=== PATIENT | female | born 1990 | race Caucasian/White ===

== ENCOUNTER → 2019-09-28 20:18 | Outpatient (CLI) | payer OTHER, SELFPAY ==
--- NOTE | 2019-09-28 | DI.MRI.S_ITS ---
PROCEDURE: MR HEAD/BRAIN WO CON INDICATIONS: Postconcussional syndrome TECHNIQUE: Noncontrast axial T1 spin echo, axial T2 fast spin echo, sagittal and axial FLAIR, coronal T2 fast spin echo, axial gradient echo, axial diffusion and ADC through the brain. COMPARISON: None. FINDINGS: Image quality: Excellent. CSF Spaces: Basal cisterns are patent. No extra-axial fluid collections. Ventricles are normal in size and shape. Brain: No intracranial masses or hemorrhage. Kelley/white matter interface is normal. Brainstem appears normal. Diffusion-weighted images demonstrate no acute ischemic insult. No chronic ischemic insults. Normal intravascular flow voids are present. Skull and face: Calvarium has normal marrow signal. Orbits appear normal. Sinuses: Sinuses and mastoids are clear. IMPRESSION: Normal for age, source of current symptoms is not seen. No intracranial hemorrhage found. Dictated by: Bradford Jasmine M.D. on 09/29/2019 at 8:21 Approved by: Bradford Jasmine M.D. on 09/29/2019 at 8:21
== END ==
PROVIDERS: Referring Provider Physician Assistant; Visit Provider Physician Assistant
DX: F07.81 Postconcussional syndrome (principal)
CPT/HCPCS: 70551

== ENCOUNTER 2020-04-23 14:43 | Emergency (ER) | payer OTHER, SELFPAY ==
[2020-04-23 14:57] VITALS: BP 146/74; PULSE 93; RESP 19; TEMP 36.9; O2SAT 98; BMI 33.1
[2020-04-23 15:28] LABS: Add Manual Diff / Slide Review NO; Basophils Absolute Auto 0 /uL (0-100); Basophils Percent Auto 0.3 % (0-2); Eosinophils Absolute Auto 0 /uL (0-450); Hematocrit 49.2 % (36-46); Hemoglobin 16.3 g/dL (12.0-16.0); Lymphocytes Absolute Auto 700 /uL (1100-4500); Mean Corpuscular HGB Conc 33.2 % (30-36); Mean Corpuscular Hemoglobin 28.4 PG (26-34); Mean Corpuscular Volume 85.7 fL (80-100); Monocytes Absolute Auto 300 /uL (0-900); Neutrophils Absolute Auto 8000 /uL (1500-7000); Neutrophils Percent Auto 88.7 % (50-75); Platelet Count 320 X10^3/uL (150-400); Red Blood Cell Count 5.74 X10^6/uL (4.0-5.2); Red Cell Distribution Width 13.1 % (11.6-14.8)
[2020-04-23] MEDS: SODIUM CHLORIDE 0.9% 1,000 ML 1000 ML IV (15:33)
[2020-04-23] MEDS: diphenhydrAMINE 50 MG/ML VIAL 25 MG IV (15:33)
[2020-04-23] MEDS: METOCLOPRAMIDE 10 MG/2 ML INJ IV (15:34)
[2020-04-23 15:35] LABS: Alanine Aminotransferase 41 IU/L (<35); Albumin 4.3 g/dL (3.5-5.0); Albumin Globulin Ratio 1.4 (1.0-2.8); Alkaline Phosphatase 76 U/L (38-126); Aspartate Aminotransferase 44 IU/L (14-36); BUN Creatinine Ratio 6.2 (6-22); Bilirubin Total 0.9 mg/dL (0.2-1.3); Blood Urea Nitrogen 4 mg/dL (7-17); Calcium 9.5 mg/dL (8.4-10.2); Carbon Dioxide 25 mmol/L (22-32); Chloride 104 mmol/L (98-107); Estimated Glomerular Filt Rate > 60.0 mL/min (>60); Glucose 90 mg/dL (70-100); HEMOLYSIS < 15 (0-50); Magnesium 2.1 mg/dL (1.6-2.3); Potassium 4.3 mmol/L (3.4-5.1); Sodium 140 mmol/L (137-145); Total Protein 7.3 g/dL (6.3-8.2)
--- NOTE | 2020-04-23 15:55 | ED.NAVMDI ---
HPI - Nausea/Vomiting/Diarrhea <YAHIR Durpee - Last Filed: 04/23/20 16:52> General Chief complaint: Nausea/Vomiting/Diarrhea Stated complaint: DEHYDRATION VOMITING Time Seen by Provider: 04/23/20 14:57 Source: patient Mode of arrival: Ambulatory Limitations: no limitations History of Present Illness HPI Narrative: This is a 29-year-old female, former smoker, who presents to ED with a friend with chief complain of feeling dehydrated with multiple episodes of nausea and vomiting. Patient reports she has not been tolerated even liquid/water. Reports associated symptoms as dry mouth, headache, spasm in her toes and fingers. Patient has been having nausea and vomiting since 02/11/20 when her committed suicide. Patient denies fever, pain but has upset stomach from heart burn. Patient also has soft stools but not diarrhea. Patient states this is 2nd visit to emergency room for rehydration and she was seen at ER in [place]. She denies urinary symptoms. She is currently seeing therapist and thinks her symptoms are psychosomatic from PTSD and anxiety. Patient reports Zofran has not been too effective treating nausea in the past. LMP 02/22/20. Related Data Home Medications Medication Instructions Recorded Confirmed alprazolam [Xanax] 1 mg PO TID PRN 04/23/20 04/23/20 ibuprofen 600 mg PO Q8HP PRN 04/23/20 04/23/20 lamotrigine 25 mg PO DAILY 04/23/20 04/23/20 Previous Rx's Medication Instructions Recorded metoclopramide HCl [Reglan] 10 mg PO Q6H PRN #10 tab 04/23/20 Allergies Allergy/AdvReac Type Severity Reaction Status Date / Time No Known Drug Allergies Allergy Verified 04/23/20 15:23 Review of Systems <Gabriele BenítezYAHIR Bauer - Last Filed: 04/23/20 16:52> Review of Systems Narrative: General: Denies fever, chills, fatigue, malaise, sweats. HEENT: Denies sinus pain, ear pain, sore throat, difficulty swallowing, dizziness. Respiratory: Denies dyspnea, cough, wheezing, hemoptysis, sputum. Cardiovascular: Denies chest pain, palpitations, orthopnea, edema. Gastrointestinal: See HPI : Denies dysuria, frequency, incontinence, hematuria, urinary retention. Musculoskeletal: Denies weakness, joint pain or bony pain. Skin: Denies rash, skin lesions, or other. Neurologic: Denies weakness, headache, numbness, change in speech, confusion, seizures, incoordination. Psychiatric: See HPI 12-point review of systems is negative except for those stated above. Patient History <YAHIR Dupree - Last Filed: 04/23/20 16:52> Medical History (Updated 04/23/20 @ 17:15 by Sintia Marx RN) Anxiety (Acute) PTSD (post-traumatic stress disorder) (Acute) Social History Smoking Status: Former smoker Smoking Status: Former smoker alcohol intake frequency: holidays/special occasions only Substance Use Type: marijuana Exam <Gabriele VU PaulsonP - Last Filed: 04/23/20 16:52> Narrative Exam Narrative: GEN: Alert, oriented x 3, well appearing and nourished, and in no acute distress. Head: Normal cephalic, atraumatic. No scalp or temporal tenderness, palpable mass or rash. EYES: Pupils are equal, round, and reactive to light and accommodation. Extraocular muscles are intact bilaterally. There is no subconjunctival hemorrhage, exudate and sclera non-icteric. ENT: Hearing grossly intact. Airway patent. Neck: Trachea in midline. No JVD, non-tender without lymphadenopathy. No masses or thyroid megaly. Supple, non-tender and no meningeal signs. CARDIAC: Normal regular rate and rhythm without murmurs, gallops, or rubs. No chest wall tenderness. No peripheral edema, cyanosis or pallor. Capillary refill is less than 2 seconds. RESPIRATORY: Lungs are clear to auscultate bilaterally. No cough, wheezes, rales, or rhonchi. No stridor, respiratory distress, increase work of breathing, or accessary muscle used. ABD: Abdomen soft, nontender and non-distended. No guarding or rebound tenderness to palpate. Bowel sounds are normal in all 4 quadrants. There is no palpable masses or organomegaly. EXT: Full painless ROM of all extremities with no loss of sensation, strength, effusion or edema. SKIN: Warm, dry, normal color for patient. No erythema, lesions or rash over visible areas. BACK: Nontender without deformity or crepitance. No flank tenderness. NEUROLOGICAL: Alert and oriented to place, time and person. Sensation and motor function intact bilaterally. No facial droops, dysphasia. PSYCHIATRIC: Good judgement and reason, without hallucinations, abnormal affect or abnormal behaviors during the examination. Patient is not suicidal. Initial Vital Signs Initial Vital Signs: Vital Signs Temperature 98.4 F 04/23/20 14:57 Pulse Rate 93 H 04/23/20 14:57 Respiratory Rate 19 04/23/20 14:57 Blood Pressure 146/74 H 04/23/20 14:57 Pulse Oximetry 98 04/23/20 14:57 <Davonte Wheeler DO - Last Filed: 04/23/20 17:30> Initial Vital Signs Initial Vital Signs: Vital Signs Temperature 98.4 F 04/23/20 14:57 Pulse Rate 93 H 04/23/20 14:57 Respiratory Rate 19 04/23/20 14:57 Blood Pressure 146/74 H 04/23/20 14:57 Pulse Oximetry 98 04/23/20 14:57 Scores <YAHIR Dupree - Last Filed: 04/23/20 16:52> GCS Chaya coma scale eye opening: Spontaneous [place]aya coma scale verbal response: Orientated [place] coma scale motor response: Obey commands [place] coma scale total score: 15 Course <YAHIR Dupree - Last Filed: 04/23/20 16:52> Orders Ordered: ED Orders 04/23/20 15:07 EKG-12 Lead Routine 04/23/20 15:10 Complete Blood Count AUTO DIFF Stat Comprehensive Metabolic Panel Stat Magnesium Stat 04/23/20 15:57 Lipase Stat Discontinued Medications Diphenhydramine HCl (Benadryl) 25 mg IV NOW ONE Stop: 04/23/20 15:16 Last Admin: 04/23/20 15:33 Dose: 25 mg Documented by: SATYA Sodium Chloride (Normal Saline 0.9%) 1,000 mls @ 1,000 mls/hr IV BOLUS ONE Stop: 04/23/20 16:14 Last Infusion: 04/23/20 17:10 Dose: 0 mls/hr Documented by: Admin: 04/23/20 15:33 Dose: 1,000 mls/hr Documented by: SATYA Metoclopramide HCl (Reglan) 10 mg IV NOW ONE Stop: 04/23/20 15:16 Last Admin: 04/23/20 15:34 Dose: 10 mg Documented by: SATYA Pantoprazole Sodium (Protonix) 40 mg IV NOW ONE Stop: 04/23/20 15:52 Last Admin: 04/23/20 16:06 Dose: 40 mg Documented by: SATYA Vital Signs Vital signs: Vital Signs - 8 hr 04/23/20 14:57 04/23/20 17:00 Temperature 98.4 F Pulse Rate 93 H 98 H Respiratory Rate 19 Blood Pressure 146/74 H 131/76 Pulse Oximetry 98 100 <Davonte Wheeler DO - Last Filed: 04/23/20 17:30> Orders Ordered: ED Orders 04/23/20 15:07 EKG-12 Lead Routine 04/23/20 15:10 Complete Blood Count AUTO DIFF Stat Comprehensive Metabolic Panel Stat Magnesium Stat 04/23/20 15:57 Lipase Stat Discontinued Medications Diphenhydramine HCl (Benadryl) 25 mg IV NOW ONE Stop: 04/23/20 15:16 Last Admin: 04/23/20 15:33 Dose: 25 mg Documented by: SATYA Sodium Chloride (Normal Saline 0.9%) 1,000 mls @ 1,000 mls/hr IV BOLUS ONE Stop: 04/23/20 16:14 Last Infusion: 04/23/20 17:10 Dose: 0 mls/hr Documented by: Admin: 04/23/20 15:33 Dose: 1,000 mls/hr Documented by: SATYA Metoclopramide HCl (Reglan) 10 mg IV NOW ONE Stop: 04/23/20 15:16 Last Admin: 04/23/20 15:34 Dose: 10 mg Documented by: SATYA Pantoprazole Sodium (Protonix) 40 mg IV NOW ONE Stop: 04/23/20 15:52 Last Admin: 04/23/20 16:06 Dose: 40 mg Documented by: SATYA Vital Signs Vital signs: Vital Signs - 8 hr 04/23/20 14:57 04/23/20 17:00 Temperature 98.4 F Pulse Rate 93 H 98 H Respiratory Rate 19 Blood Pressure 146/74 H 131/76 Pulse Oximetry 98 100 MDM - Nausea/Vomiting/Diarrhea <YAHIR Dupree - Last Filed: 04/23/20 16:52> Differential Diagnosis Differential diagnosis: Likely dehydration and other (Gastritis, gastric ulcer) Medical Records Attestation: I reviewed the patient's medical records. Lab Data Attestation: I reviewed the patient's lab results. Result diagrams: 04/23/20 15:10 04/23/20 15:10 Labs: Lab Results 04/23/20 04/23/20 04/23/20 Range/Units 15:10 15:10 15:57 WBC 9.0 (4.5-11.0) X10^3/uL RBC 5.74 H (4.0-5.2) X10^6/uL Hgb 16.3 H (12.0-16.0) g/dL Hct 49.2 H (36-46) % MCV 85.7 (80-100) fL MCH 28.4 (26-34) PG MCHC 33.2 (30-36) % RDW 13.1 (11.6-14.8) % Plt Count 320 (150-400) X10^3/uL Neut % (Auto) 88.7 H (50-75) % Lymph % (Auto) 8.0 L (25-40) % [place] % (Auto) 3.0 (3-14) % Eos % (Auto) 0.0 L (2-4) % Baso % (Auto) 0.3 (0-2) % Neut # (Auto) 8000 H (2905-6573) /uL Lymph # (Auto) 700 L (6949-1623) /uL [place] # (Auto) 300 (0-900) /uL Eos # (Auto) 0 (0-450) /uL Baso # (Auto) 0 (0-100) /uL Sodium 140 (137-145) mmol/L Potassium 4.3 (3.4-5.1) mmol/L Chloride 104 (98-107) mmol/L Carbon Dioxide 25 (22-32) mmol/L BUN 4 L (7-17) mg/dL Creatinine 0.65 (0.52-1.04) mg/dL Estimated GFR > 60.0 (>60) mL/min BUN/Creatinine Ratio 6.2 (6-22) Glucose 90 (70-100) mg/dL Calcium 9.5 (8.4-10.2) mg/dL Magnesium 2.1 (1.6-2.3) mg/dL Total Bilirubin 0.9 (0.2-1.3) mg/dL AST 44 H (14-36) IU/L ALT 41 H (<35) IU/L Alkaline Phosphatase 76 (38-126) U/L Total Protein 7.3 (6.3-8.2) g/dL Albumin 4.3 (3.5-5.0) g/dL Globulin 3.0 (1.7-4.1) g/dL Albumin/Globulin Ratio 1.4 (1.0-2.8) Lipase 75 (23-300) U/L ECG Data Attestation: I personally reviewed and interpreted this ECG as follows: Prior ECG tracings: not available for review Interpretation: Sinus rhythm with sinus arrhythmia rate at 68. Normal [place]. [place] interval 140, QRS duration 82, QT/QTC 430/457. No acute ST changes MDM Narrative Medical decision making narrative: This is a 29 year female presents to ED with multiple nausea and vomiting and feeling dehydrated. Patient denies abdominal pain or fever. Physical exam is unremarkable. Abdomen was soft nontender to palpate with active bowel sounds in all quadrants. No leukocytosis with elevated H/H as 16.3/49.2. No baseline H/H and unable to compare. No elevated BUN and unremarkable chemistry test. Mildly elevated AST and ALT of 44 and 41. Normal lipase. Patient was medicated with 1 L of IV fluid with Benadryl 25 mg and Reglan 10 mg. patient was also medicated with pantoprazole. Patient reports her symptoms are improved and was able to tolerate liquids and crackers without nausea or vomiting. Patient advised to follow-up with primary care physician and continue with counseling service. Discharged to home with small dose of Reglan since she reports Zofran has been effective for her symptoms management with excellent medication precautions. Patient advised to hydrate and eat small amount frequently and return precautions were discussed with patient. Patient verbalized understanding and agreement with the treatment plan. <Davonte Wheeler DO - Last Filed: 04/23/20 17:30> Lab Data Labs: Lab Results 04/23/20 04/23/20 04/23/20 Range/Units 15:10 15:10 15:57 WBC 9.0 (4.5-11.0) X10^3/uL RBC 5.74 H (4.0-5.2) X10^6/uL Hgb 16.3 H (12.0-16.0) g/dL Hct 49.2 H (36-46) % MCV 85.7 (80-100) fL MCH 28.4 (26-34) PG MCHC 33.2 (30-36) % RDW 13.1 (11.6-14.8) % Plt Count 320 (150-400) X10^3/uL Neut % (Auto) 88.7 H (50-75) % Lymph % (Auto) 8.0 L (25-40) % [place] % (Auto) 3.0 (3-14) % Eos % (Auto) 0.0 L (2-4) % Baso % (Auto) 0.3 (0-2) % Neut # (Auto) 8000 H (6618-9291) /uL Lymph # (Auto) 700 L (9180-6257) /uL [place] # (Auto) 300 (0-900) /uL Eos # (Auto) 0 (0-450) /uL Baso # (Auto) 0 (0-100) /uL Sodium 140 (137-145) mmol/L Potassium 4.3 (3.4-5.1) mmol/L Chloride 104 (98-107) mmol/L Carbon Dioxide 25 (22-32) mmol/L BUN 4 L (7-17) mg/dL Creatinine 0.65 (0.52-1.04) mg/dL Estimated GFR > 60.0 (>60) mL/min BUN/Creatinine Ratio 6.2 (6-22) Glucose 90 (70-100) mg/dL Calcium 9.5 (8.4-10.2) mg/dL Magnesium 2.1 (1.6-2.3) mg/dL Total Bilirubin 0.9 (0.2-1.3) mg/dL AST 44 H (14-36) IU/L ALT 41 H (<35) IU/L Alkaline Phosphatase 76 (38-126) U/L Total Protein 7.3 (6.3-8.2) g/dL Albumin 4.3 (3.5-5.0) g/dL Globulin 3.0 (1.7-4.1) g/dL Albumin/Globulin Ratio 1.4 (1.0-2.8) Lipase 75 (23-300) U/L Discharge Plan Departure Patient Disposition: Home Clinical Impression: Contusion of right hand Gastritis Qualifiers: Gastritis type: unspecified gastritis Chronicity: unspecified Gastritis bleeding: presence of bleeding unspecified Qualified Code(s): K29.70 - Gastritis, unspecified, without bleeding Discharge Date/Time: 04/23/20 17:00 Instructions: DI for Vomiting -- Adult Activity Restrictions/Additional Instructions: You have been diagnosed with [nausea and vomiting. Lab tests are unremarkable. No indication for infection. Mildly elevated H/H of 16.3/49.2 and liver function in AST and ALT with normal Lipase. You were medicated with IV fluid and Benadryl and Reglan which helped with her symptoms.]. What to do: *Take your medications as directed. Please take Reglan as needed for nausea and vomiting. Continue to use Prilosec for stomach acid. Reglan has been transmitted to [facility] in [place]. *Follow up with your primary care provider in 2-3 days, call for an appointment. Let them know you were seen in the ED and that we asked you to be seen in follow up. *Return to ED if you have any new, worsening, or concerning symptoms, such as [worsening pain, unable to tolerate fluids, chest pain, breathing difficulty, fever, blood in her vomit or stools or any acute concerns]. Prescriptions: New metoclopramide HCl [Reglan] 10 mg tablet 10 mg PO Q6H PRN (Reason: nausea and vomiting) Qty: 10 RF: 0 No Action alprazolam [Xanax] 1 mg Tablet 1 mg PO TID PRN (Reason: Pain (Scale Score 1-3)) RF: 0 lamotrigine 25 mg tablet extended release 24hr 25 mg PO DAILY RF: 0 ibuprofen 600 MG tablet 600 mg PO Q8HP PRN (Reason: Pain (Scale Score 1-3)) RF: 0 Referrals: Jerica Tipton MD [Primary Care Provider] - Stand Alone Forms: Work Release Note <Davonte Wheeler DO - Last Filed: 04/23/20 17:30> [facility] Dr Wheeler Co-Sign Statement: I was available for consultation during this patient's emergency department visit. This chart is signed by myself for administrative purposes only. I did not have direct contact with this patient during this visit. They were seen independently by the APC.
[2020-04-23] MEDS: PANTOPRAZOLE 40 MG VIAL IV (16:06)
[2020-04-23 16:18] LABS: Lipase 75 U/L (23-300)
[2020-04-23 17:00] VITALS: BP 131/76; PULSE 98; O2SAT 100
== END 2020-04-23 17:00 | disposition home or self-care (01) ==
PROVIDERS: Emergency Provider Nurse Practitioner Family
DX: K29.70 Gastritis, unspecified, without bleeding (principal); S60.221A Contusion of right hand, initial encounter
CPT/HCPCS: 36415; 80053; 83690; 83735; 85025; 93005; 96361; 96374; 96375; 99284; C9113; J1200; J2765